=== PATIENT | male | born 1980 | race Caucasian/White ===

== ENCOUNTER 2018-01-01 12:21 | Emergency (ER) | END 2018-01-01 13:25 | disposition home or self-care (01) ==

== ENCOUNTER 2019-04-16 08:33 | Emergency (ER) | payer OTHER ==
[~2019-04-16] VITALS: Wt 78.0 kg
[~2019-04-16 08:33] MED LIST: LORA1TAB PO
[2019-04-16] MEDS ORDERED: ACETAMINOPHEN 500 MG TAB PO STA (11:33)
--- NOTE | 2019-04-16 11:42 | ERD ---
ER Documentation Chief Complaint Chief Complaint abd pain since last night with diarrhea and headache. no blood in stools HPI Patient is a 38 years old male with no known past medical history presenting to the clinic for abdominal pain, chills, diarrhea, headaches since yesterday night. Patient reports watery diarrhea with initial 5-6 bowel movements. Patient reports he had one bowel movements as of today morning. Patient denies fever, night sweats, nausea, emesis, abdominal distention, hematochezia, melena. She denies taking any OTC medication. Patient reports having chicken and potatoes prior to onset of symptoms. Patient denies any recent travel. Patient admits that his symptoms have improved since coming to the ED. ROS All systems reviewed and are negative except as per history of present illness. Medications Home Meds Active Scripts Famotidine* (Pepcid*) 20 Mg Tablet, 20 MG PO BID for 4 Days, TAB Prov:MANOLO SANCHEZ PA-C 04/16/19 Loperamide Hcl* (Imodium*) 2 Mg Capsule, 2 MG PO .AFTER EA LOOSE BM PRN for DIARRHEA, #10 TAB Prov:MANOLO SANCHEZ PA-C 04/16/19 Lorazepam* (Lorazepam*) 1 Mg Tablet, 1 MG PO Q8H PRN for ANXIETY, #8 TAB Prov:FOZIA ALVAREZ MD 01/01/18 Allergies Allergies: Coded Allergies: No Known Allergy (Unverified , 04/16/19) PMhx/Soc History of Surgery: No Anesthesia Reaction: No Hx Neurological Disorder: No Hx Respiratory Disorders: No Hx Cardiac Disorders: No Hx Psychiatric Problems: No Hx Miscellaneous Medical Probl: No Hx Alcohol Use: No Hx Substance Use: No Hx Tobacco Use: No Smoking Status: Never smoker FmHx Family History: No diabetes, No coronary disease, No other Physical Exam Vitals Vital Signs Date Temp Pulse Resp B/P (MAP) Pulse Ox O2 O2 Flow FiO2 Time Delivery Rate 04/16/19 97.2 74 18 122/72 99 08:35 (89) Physical Exam Const: No acute distress Head: Atraumatic Eyes: Normal Conjunctiva Resp: Clear to auscultation bilaterally Cardio: Regular rate and rhythm, no murmurs Abd: Soft, non tender, non distended. Normal bowel sounds. Negative Warner sign, Rovsing sign, McBurney's point tenderness, guarding, rebound tenderness, Burson sign, Lozada Coreas sign. Skin: No petechiae or rashes Back: No midline or flank tenderness. Negative CVAT. Neur: Awake and alert Psych: Normal Mood and Affect Result Diagram: 04/16/19 1141 04/16/19 1141 Results 24 hrs Laboratory Tests Test 04/16/19 11:41 White Blood Count 8.5 10^3/ul Red Blood Count 5.33 10^6/ul Hemoglobin 15.4 g/dl Hematocrit 45.8 % Mean Corpuscular Volume 85.9 fl Mean Corpuscular Hemoglobin 28.9 pg Mean Corpuscular Hemoglobin Concent 33.6 g/dl Red Cell Distribution Width 12.0 % Platelet Count 299 10^3/UL Mean Platelet Volume 11.1 fl Immature Granulocytes % 0.400 % Neutrophils % 61.5 % Lymphocytes % 31.0 % Monocytes % 5.2 % Eosinophils % 1.1 % Basophils % 0.8 % Nucleated Red Blood Cells % 0.0 /100WBC Immature Granulocytes # 0.030 10^3/ul Neutrophils # 5.2 10^3/ul Lymphocytes # 2.6 10^3/ul Monocytes # 0.4 10^3/ul Eosinophils # 0.1 10^3/ul Basophils # 0.1 10^3/ul Nucleated Red Blood Cells # 0.0 10^3/ul Sodium Level 143 mmol/L Potassium Level 4.4 mmol/L Chloride Level 106 mmol/L Carbon Dioxide Level 29 mmol/L Anion Gap 8 Blood Urea Nitrogen 19 mg/dl Creatinine 1.01 mg/dl Est Glomerular Filtrat Rate mL/min > 60 mL/min Glucose Level 103 mg/dl Calcium Level 9.5 mg/dl Total Bilirubin 0.7 mg/dl Direct Bilirubin 0.00 mg/dl Indirect Bilirubin 0.7 mg/dl Aspartate Amino Transf (AST/SGOT) 25 IU/L Alanine Aminotransferase (ALT/SGPT) 23 IU/L Alkaline Phosphatase 106 IU/L Total Protein 7.9 g/dl Albumin 4.4 g/dl Globulin 3.50 g/dl Albumin/Globulin Ratio 1.25 Current Medications Medications Dose Sig/Lauren Start Time Status Last (Trade) Ordered Route PRN Stop Time Admin Dose Reason Admin Famotidine 20 mg ONCE ONCE 04/16/19 DC 04/16/19 (Pepcid) PO 12:00 11:42 04/16/19 12:01 500 mg ONCE STAT 04/16/19 DC 04/16/19 Acetaminophen PO 11:33 11:42 (Tylenol 04/16/19 11:36 Tab) Loperamide 4 mg ONCE ONCE 04/16/19 DC 04/16/19 HCl PO 12:00 11:42 (Imodium Cap) 04/16/19 12:01 Procedures/MDM Patient was seen and evaluated for abdominal pain, diarrhea, headache. CBC, CMP are grossly unremarkable. Patient was given Pepcid, loperamide, Tylenol in ED with significant improvement of symptoms. Patient is most likely experiencing mild gastroenteritis that is nonbacterial. Low suspicion of sepsis, appendicitis, cholecystitis, colitis. No further work-up required for today's visit. Patient stable ready for discharge. Follow-up with PCP. Patient will be discharged with Pepcid and loperamide. Departure Diagnosis: Primary Impression: Abdominal pain Abdominal location: generalized Qualified Codes: R10.84 - Generalized abdominal pain Condition: Stable Patient Instructions: Abdominal Pain Referrals: [facility] Additional Instructions: Patient advised to return to the ED immediately for new or worsening symptoms. Patient advised to follow up with primary care provider in the next 24-48 hours. Patient verbalized understanding and agrees with treatment plan and course of action. If patient has no primary care they may follow up with [facility] + [facility] [address] [place] [id number] [facility] [id number] [place] [address] or [facility] [address] [place] [address] MANOLO SANCHEZ PA-C Apr 16, 2019 11:42
[2019-04-16] MEDS ORDERED: FAMO-96 PO (11:43)
[2019-04-16] MEDS ORDERED: LOPE2CAP PO (11:43)
[2019-04-16] MEDS ORDERED: LOPERAMIDE 2 MG CAP PO ONE (12:00)
[2019-04-16] MEDS ORDERED: FAMOTIDINE 20 MG TAB PO ONE (12:00)
[2019-04-16 12:38] VITALS: BP 128/76; PULSE 82; RESP 18
== END 2019-04-16 12:39 | disposition home or self-care (01) ==
LOC: FTE 08:33
DX: R10.84 Generalized abdominal pain (principal)
CPT/HCPCS: 80053; 85025; Z7610; 36415; 99283